=== PATIENT | male | born 1945 | race Caucasian/White ===

== ENCOUNTER 2023-06-06 17:54 | Inpatient (IN) | payer MEDICARE, OTHER ==
[~2023-06-06] VITALS: Ht 172.7 cm; Wt 59.4 kg
[~2023-06-06 17:54] MED LIST: APIX5TAB PO; ATOR10TA PO; FINA5TAB11 PO; PROP325C5 GT; RANI300T7 PO
[2023-06-06] MEDS ORDERED: IV NS 0.9% 500 ML BAG IV ONE (18:30)
[2023-06-06 18:57] LABS: BASOPHILS # (AUTO) 0.1 K/uL (0.0-0.2); BASOPHILS % (AUTO) 0.8 % (0.0-2.0); HEMATOCRIT 29 % (39-51); HEMOGLOBIN 9.3 g/dL (13.5-17.5); LYMPHOCYTES # (AUTO) 0.1 K/uL (0.8-4.8); LYMPHOCYTES % (AUTO) 1.2 % (20.0-44.0); MEAN CORPUSCULAR HEMOGLOBIN 33 PG (26.0-33.0); MEAN CORPUSCULAR HGB CONC 33 g/dl (31.0-36.0); MEAN CORPUSCULAR VOLUME 103 fL (80-96); MONOCYTES # (AUTO) 0.4 K/uL (0.1-1.30); MONOCYTES % (AUTO) 3.3 % (2.0-12.0); NEUTROPHILS # (AUTO) 10.4 K/uL (1.8-8.9); NEUTROPHILS % (AUTO) 94.7 % (43.0-81.0); PLATELET COUNT (AUTO) 84 K/uL (150-450); RED CELL DISTRIBUTION WIDTH 15.8 % (11.5-15.0)
[2023-06-06] MEDS ORDERED: FLUD0.1T GT (19:12)
[2023-06-06] MEDS ORDERED: GEMTESA GT (19:12)
[2023-06-06] MEDS ORDERED: LEVO500T90 GT (19:12)
[2023-06-06] MEDS ORDERED: ALFU10TA10 GT (19:12)
[2023-06-06] MEDS ORDERED: TRAZ-182 GT (19:12)
[2023-06-06] MEDS ORDERED: CARB1TAB31 GT (19:12)
[2023-06-06] MEDS ORDERED: METO25TA3 GT (19:12)
[2023-06-06] MEDS ORDERED: ASPI-1169 GT (19:12)
[2023-06-06] MEDS ORDERED: MIDO10TA GT (19:12)
[2023-06-06] MEDS ORDERED: TOLT4CAP PO (19:12)
[2023-06-06] MEDS ORDERED: POLY15DR40 EACHEYE (19:12)
[2023-06-06] MEDS ORDERED: ALBU1.257 IH (19:12)
[2023-06-06 19:13] LABS: ALANINE AMINOTRANSFERASE 26 U/L (12-78); ALBUMIN 2.7 g/dL (3.4-5.0); ALKALINE PHOSPHATASE 97 U/L (46-116); ASPARTATE AMINOTRANSFERASE 77 U/L (15-37); BILIRUBIN,DIRECT 0.2 mg/dL (0.0-0.2); BILIRUBIN,TOTAL 0.6 mg/dL (0.2-1.0); CALCIUM, SERUM 8.7 mg/dL (8.5-10.1); CARBON DIOXIDE 29 mmol/L (21-32); CHLORIDE 98 mmol/L (98-107); CREATININE 0.8 mg/dL (0.6-1.3); GLUCOSE 110 mg/dL (74-106); POTASSIUM 4.6 mmol/L (3.5-5.1); SODIUM SERUM 132 mmol/L (136-145); TOTAL PROTEIN, SERUM 5.9 g/dL (6.4-8.2); UREA NITROGEN, BLOOD 33 mg/dL (7-18)
[2023-06-06 19:18] LABS: LACTIC ACID 2.1 mmol/L (0.4-2.0)
[2023-06-06 19:37] LABS: INR 1.25 (0.91-1.10); PARTIAL THROMBOPLASTIN TIME 36.5 SEC (24.3-34.3); PROTHROMBIN TIME 13.1 SECS (9.2-11.1)
[2023-06-06] MEDS ORDERED: CEFTRIAXONE 1GM BAG (ER ONLY) 50 ML IV ONE ×2 (20:30→20:41)
[2023-06-06] MEDS ORDERED: IV NS 0.9% 1,000 ML BAG IV ONE (20:30)
[2023-06-06] MEDS ORDERED: AZITHROMYCIN 500 MG in IV D5W 250 ML IV ONE (20:30)
[2023-06-06 20:47] LABS: APPEARANCE,URINE CLEAR (CLEAR); BILIRUBIN,URINE NEGATIVE (NEGATIVE); BLOOD, URINE NEGATIVE Ery/uL (NEGATIVE); COLOR,URINE YELLOW (YELLOW); KETONES,URINE NEGATIVE (NEGATIVE); LEUKOCYTE ESTERASE ,URINE NEGATIVE (NEGATIVE); NITRITE, URINE NEGATIVE (NEGATIVE); PROTEIN,URINE NEGATIVE (NEGATIVE); UGLUCOSE NEGATIVE (NEGATIVE); UROBILINOGEN,URINE 0.2 EU/dL (0.2)
[2023-06-06] MEDS ORDERED: AZITHROMYCIN 500 MG VIAL ONE (21:12)
[2023-06-06] MEDS ORDERED: MAGNESIUM HYDROXIDE 30 ML UDC PO PRN (21:30)
[2023-06-06] MEDS ORDERED: ZOLPIDEM TARTRATE 5 MG TABLET PO PRN (21:30)
[2023-06-06] MEDS ORDERED: IV NS 0.9% 1,000 ML IV PRN (21:30)
[2023-06-06] MEDS ORDERED: MAG HYDROX/AL HYDROX/SIMETH 30 ML UDC PO PRN (21:30)
[2023-06-06] MEDS ORDERED: ONDANSETRON HCL/PF 4 MG/2 ML VIAL IVP PRN (21:30)
[2023-06-06] MEDS ORDERED: ACETAMINOPHEN 325 MG TABLET PO PRN (21:30)
[2023-06-06] MEDS ORDERED: Z GUARD REMEDY 4 OZ OINT TP PRN (21:30)
[2023-06-06 23:26] LABS: ANISOCYTOSIS 1+; BASOPHILS % (MANUAL) 0 % (0.0-2.0); EOSINOPHILS % (MANUAL) 0 % (0-4); HYPOCHROMASIA 1+; LYMPHOCYTES % (MANUAL) 5 % (16-48); MONOCYTES % (MANUAL) 6 % (0-11.0); NEUTROPHILS % (MANUAL) 89 (42-76); PLATELET ESTIMATE DECREASED
[2023-06-06 23:27] LABS: OVALOCYTES 1+
[2023-06-06] MEDS: TRAZODONE 50 MG TABLET GT ONE (23:55)
[2023-06-07] VITALS (12 sets, daily range): BP systolic 134–155; BP diastolic 58–81; TEMP 97.3–97.5; O2SAT 93–99
[2023-06-07] MEDS: TRAZODONE 50 MG TABLET GT ONE
[2023-06-07 01:32] LABS: ABG BASE EXCESS 2.4 mmol/L; ABG PCO2 61.5 mmHg (35.0-45.0); ABG PH 7.302 (7.350-7.450); ABG PO2 128.4 mmHg (75.0-100.0); ABG TOTAL HEMOGLOBIN 10.1 G/dL (13.5-18.0); AaDO2 122.5 mmHg; COHb 0.4 % (0.5-1.5); MetHb 0.1 % (0.0-1.5); O2Hb 97.5 % (94.0-97.0); SITE, ABG Left Radial; VENT MODE, BG 6L SIMPLE MASK
[2023-06-07] MEDS: ALBUTEROL HALF STRENGTH 1.25 MG/3 ML VIAL.NEB NEB SCH ×7 (01:40→23:30)
[2023-06-07] MEDS: PANTOPRAZOLE 40 MG TABLET.DR PO SCH ×2 (07:30→09:40)
[2023-06-07 07:50] LABS: EOSINOPHILS % (AUTO) 0.1 % (0.0-6.0); HEMATOCRIT 29 % (39-51); HEMOGLOBIN 9.3 g/dL (13.5-17.5); LYMPHOCYTES # (AUTO) 0.2 K/uL (0.8-4.8); LYMPHOCYTES % (AUTO) 1.4 % (20.0-44.0); MEAN CORPUSCULAR HEMOGLOBIN 33 PG (26.0-33.0); MEAN CORPUSCULAR HGB CONC 33 g/dl (31.0-36.0); MEAN CORPUSCULAR VOLUME 102 fL (80-96); MONOCYTES # (AUTO) 0.7 K/uL (0.1-1.30); MONOCYTES % (AUTO) 4.2 % (2.0-12.0); NEUTROPHILS # (AUTO) 14.8 K/uL (1.8-8.9); NEUTROPHILS % (AUTO) 94.3 % (43.0-81.0); PLATELET COUNT (AUTO) 87 K/uL (150-450); RED BLOOD CELL COUNT(AUTO) 2.83 MIL/uL (4.5-6.0); RED CELL DISTRIBUTION WIDTH 15.8 % (11.5-15.0); WHITE BLOOD COUNT (AUTO) 15.7 K/uL (4.3-11.0)
[2023-06-07 08:06] LABS: CALCIUM, SERUM 8.9 mg/dL (8.5-10.1); CREATININE 0.8 mg/dL (0.6-1.3); MAGNESIUM 2.2 mg/dL (1.8-2.4); PHOSPHORUS 3.7 mg/dL (2.5-4.9)
[2023-06-07 08:33] LABS: THYROID STIMULATING HORMONE 8.747 uIU/mL (0.358-3.74)
[2023-06-07] MEDS ORDERED: ENOXAPARIN SODIUM 40 MG/0.4 ML DISP.SYRIN SQ SCH (09:00)
[2023-06-07] MEDS ORDERED: NUTRITIONAL SUPPLEMENT/FIBER 250 ML CAN GT SCH (09:30)
[2023-06-07] MEDS ORDERED: CARB1TAB21 GT (10:02)
[2023-06-07] MEDS ORDERED: IV NS 0.9% 1,000 ML IV PRN (12:42)
[2023-06-07] MEDS: NUTRITIONAL SUPPLEMENT/FIBER 250 ML CAN GT SCH ×4 (13:29→21:00)
[2023-06-07 15:53] LABS: ABG BASE EXCESS 3.9 mmol/L; ABG OXYGEN SATURATION 94.5 % (92.0-98.5); ABG PCO2 52.6 mmHg (35.0-45.0); ABG PH 7.372 (7.350-7.450); ABG PO2 78.4 mmHg (75.0-100.0); ABG TOTAL HEMOGLOBIN 9.7 G/dL (13.5-18.0); AaDO2 88.2 mmHg; COHb 0.3 % (0.5-1.5); MetHb 0.2 % (0.0-1.5); SITE, ABG Right Radial; VENT MODE, BG NC 3 LPM
[2023-06-07] MEDS: IPRATROPIUM NEB FS 0.5 MG/2.5 ML AMPUL.NEB NEB SCH ×2 (15:58→20:03)
[2023-06-07] MEDS: ACETYLCYSTEINE 10% SOLN 400 MG/4 ML VIAL NEB SCH ×2 (15:58→23:30)
[2023-06-07] MEDS ORDERED: ALBUTEROL HALF STRENGTH 1.25 MG/3 ML VIAL.NEB IH PRN (16:00)
[2023-06-07] MEDS ORDERED: MIDODRINE HCL (5MG) 5 MG TABLET GT SCH (17:00)
[2023-06-07] MEDS ORDERED: CARBIDOPA/LEVODOPA 25/100 MG 1 UDTAB GT SCH (17:00)
[2023-06-07 18:22] LABS: BAND % (MANUAL) 6 % (0.0-5.0); LYMPHOCYTES % (MANUAL) 4 % (16-48); MONOCYTES % (MANUAL) 2 % (0-11.0); NEUTROPHILS % (MANUAL) 88 (42-76)
[2023-06-07 18:23] LABS: PLATELET ESTIMATE DECREASED
[2023-06-07] MEDS ORDERED: CEFTRIAXONE 1 G in IV D5W 50 ML IV SCH (21:00)
[2023-06-07] MEDS ORDERED: AZITHROMYCIN 500 MG in IV D5W 250 ML IV SCH (22:00)
[2023-06-07] MEDS ORDERED: TRAZODONE 50 MG TABLET GT SCH (22:00)
[2023-06-08] MEDS ORDERED: METOPROLOL SUCCINATE 25 MG TAB.SR.24H GT SCH (09:00)
[2023-06-08] MEDS ORDERED: FLUDROCORTISONE 0.1 MG TABLET GT SCH (09:00)
[2023-06-08] MEDS ORDERED: ASPIRIN 81 MG TAB.CHEW GT SCH (09:00)
[2023-06-08] MEDS ORDERED: SODIUM BICARBONATE SYR 50 MEQ/50 ML DISP.SYRIN IV ONE (17:26)
[2023-06-08] MEDS ORDERED: EPINEPHRINE (1:10,000) SYRINGE 1 MG/10 ML DISP.SYRIN IVP ONE (17:26)
== END 2023-06-07 23:38 | DRG 208 ==
LOC: ER 17:56 → TELE 21:01 → TELE-TD 06-07 03:06 → TELE1 06-07 09:36 → UNDODISIN 06-08 05:01
PROVIDERS: ADMIT Student in an Organized Health Care Education/Training Program; ATTEND Nurse Practitioner Acute Care
PROC: 5A1935Z Respiratory Ventilation, Less than 24 Consecutive Hours (ICD-10-PCS; principal; 2023-06-07)
PROC: 5A2204Z Restoration of Cardiac Rhythm, Single (ICD-10-PCS; 2023-06-07)
DX: J15.9 Unspecified bacterial pneumonia (principal); J96.21 Acute and chronic respiratory failure with hypoxia; J96.22 Acute and chronic respiratory failure with hypercapnia; G93.41 Metabolic encephalopathy; E44.0 Moderate protein-calorie malnutrition; E87.1 Hypo-osmolality and hyponatremia; J81.1 Chronic pulmonary edema; J98.11 Atelectasis; J90 Pleural effusion, not elsewhere classified; E86.0 Dehydration; Z66 Do not resuscitate; E78.5 Hyperlipidemia, unspecified; I48.0 Paroxysmal atrial fibrillation; Z91.040 Latex allergy status; Z79.51 Long term (current) use of inhaled steroids; Z79.82 Long term (current) use of aspirin; Z79.899 Other long term (current) drug therapy; R79.89 Other specified abnormal findings of blood chemistry; D18.00 Hemangioma unspecified site; I10 Essential (primary) hypertension; H91.90 Unspecified hearing loss, unspecified ear; F03.90 Unspecified dementia, unspecified severity, without behavioral disturbance, psychotic disturbance, mood disturbance, and anxiety; D69.6 Thrombocytopenia, unspecified; R13.10 Dysphagia, unspecified; Z93.1 Gastrostomy status; Z95.0 Presence of cardiac pacemaker; D64.9 Anemia, unspecified; Z86.69 Personal history of other diseases of the nervous system and sense organs
CPT/HCPCS: 31720; 36415; 36600; 70450-TC; 71045-TC; 80048-TC; 80076-TC; 82803-TC; 82962-TC; 83605-TC; 83735-TC; 84100-TC; 84443-TC; 84484-TC; 85025-TC; 85730-TC; 87040-TC; 87086-TC; 92950-TC; 93307-TC; 94668-TC; 94799-TC; A4223; G0378; J0171; J0456; J0696; J3490; J7030; J7040; J7060